=== PATIENT | female | born 1955 | race Caucasian/White ===

== ENCOUNTER 2016-10-15 11:28 | Emergency (ER) | payer SELFPAY ==
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
[~2016-10-15 11:28] MED LIST: ALBUTEROL17 G1 IH; AMLODIPINE-BEN1 EACH PO; ANXIETY MED; BAYER CHEWABLE81 MG PO; BROMPHED DM PO; BYSTOLIC10 MG PO; CHOLESTEROL MED; FUROSEMIDE40 MG PO; MOTRIN PO; NORCO 5MG-325MG PO; NORCO1 TAB 10/3 PO; OMEPRAZOLE20 M1 PO; TENORMIN25 M1 PO; ZOFRAN PO
== END 2016-10-15 12:08 | disposition home or self-care (01) ==
LOC: SED 11:28
DX: S16.1XXA Strain of muscle, fascia and tendon at neck level, initial encounter (principal); M50.123 Cervical disc disorder at C6-C7 level with radiculopathy; I10 Essential (primary) hypertension; K21.9 Gastro-esophageal reflux disease without esophagitis; F41.9 Anxiety disorder, unspecified; Z90.710 Acquired absence of both cervix and uterus; Z79.82 Long term (current) use of aspirin; Z79.899 Other long term (current) drug therapy; Z88.1 Allergy status to other antibiotic agents; V89.2XXA Person injured in unspecified motor-vehicle accident, traffic, initial encounter
CPT/HCPCS: 72040; 96372; 99283; J2360

== ENCOUNTER → 2016-12-07 | Outpatient (CLI) | payer OTHER ==
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
== END | disposition home or self-care (01) ==
LOC: SMRI 12:22
DX: M25.512 Pain in left shoulder (principal); M54.2 Cervicalgia; M75.112 Incomplete rotator cuff tear or rupture of left shoulder, not specified as traumatic; M19.012 Primary osteoarthritis, left shoulder; M75.92 Shoulder lesion, unspecified, left shoulder; M47.892 Other spondylosis, cervical region; R60.0 Localized edema
CPT/HCPCS: 72141; 73221